=== PATIENT | female | born 1955 | race Caucasian/White ===

== ENCOUNTER 2017-04-27 14:01 | Emergency (ER) | payer OTHER ==
[~2017-04-27] VITALS: Ht 149.9 cm; Wt 73.7 kg
[~2017-04-27 14:01] MED LIST: ACET500C5 PO; ACYC800T57 PO; NO MEDS TAKEN
[2017-04-27 14:12] VITALS: Ht 149.9 cm; Wt 73.7 kg
[2017-04-27] MEDS ORDERED: IBUP400T22 PO (14:36)
[2017-04-27] MEDS ORDERED: VALA10004 PO (14:36)
[2017-04-27] MEDS ORDERED: GABA300C16 PO (14:37)
--- NOTE | 2017-04-27 15:35 | ERD ---
ER Documentation Chief Complaint Chief Complaint rash x 3 days; hx of shingles HPI This is a 8-year-old female with a history of shingles presenting to the emergency department complaining of shingles sensation to the left lower chest for the past day. Patient states that this has happened in the past and which she has waited too long and shingles has developed. Denies any fever. Denies taking any medications for this ROS All systems reviewed and are negative except as per history of present illness. Medications Home Meds Active Scripts Gabapentin* (Gabapentin*) 300 Mg Capsule, 300 MG PO BID, #20 CAP Prov:ABBI FRANK PA-C 04/27/17 Ibuprofen* (Motrin*) 400 Mg Tab, 400 MG PO Q6H Y for PAIN AND OR ELEVATED TEMP, #30 TAB Prov:ABBI FRANKC 04/27/17 Valacyclovir HCl (Valtrex) 1,000 Mg Tablet, 1000 MG PO TID for 7 Days, TAB Prov:ABBI FRANKC 04/27/17 Acetaminophen* (Tylophen*) 500 Mg Capsule, 2 CAP PO Q8H Y for PAIN AND OR ELEVATED TEMP, #20 CAP Prov:ANTON ESTRELLA PA-C 03/13/16 Acyclovir* (Zovirax*) 800 Mg Tablet, 800 MG PO 5 TIMES DAILY for 7 Days, TAB Prov:ANTON ESTRELLA PA-C 03/13/16 Reported Medications [No Meds Taken] No Conflict Check 09/01/10 Allergies Allergies: Coded Allergies: No Allergy Information (Verified Allergy, Mild, 09/01/10) PMhx/Soc Hx Cardiac Disorders: Yes (htn) Hx Miscellaneous Medical Probl: Yes (dm, shingles) Physical Exam Vitals Vital Signs Date Time Temp Pulse Resp B/P Pulse Ox O2 Delivery O2 Flow Rate FiO2 04/27/17 14:12 98.1 80 18 176/74 99 Physical Exam Const: Developed well-nourished Head: Atraumatic Eyes: Normal Conjunctiva ENT: Normal External Ears, Nose and Mouth. Neck: Full range of motion..~ No meningismus. Resp: Clear to auscultation bilaterally Cardio: Regular rate and rhythm, no murmurs Abd: Soft, non tender, non distended. Normal bowel sounds Skin: No petechiae or rashes Back: No midline or flank tenderness Ext: No cyanosis, or edema Neur: Awake and alert Psych: Normal Mood and Affect Procedures/MDM This is a 62-year-old female presenting to the emergency department complaining of a sensation that she is about to get shingles on the left lower chest for the past day. In the past patient has had this sensation and waited and developed the rash. On examination there was no evidence of shingles at this time however she was empirically treated with valacyclovir. I discussed the follow-up with primary care physician. Return precautions given. Stable to be discharged home Departure Diagnosis: Primary Impression: Shingles Condition: Stable Patient Instructions: Shingles (Herpes Zoster) Referrals: DOCTOR,NOT ON STAFF (PCP) Additional Instructions: Visite a garcia melissa mariano para un EXAMEN.Regrese a estas instalaciones si no se mejora cristofer esperbamos o cristofer le dijimos. Egan toda la medicina harriett y cristofer se le indic. ABBI FRANK PA-C Apr 27, 2017 15:35
== END 2017-04-27 15:02 | disposition home or self-care (01) ==
LOC: E/R 14:01
DX: B02.9 Zoster without complications (principal); E11.9 Type 2 diabetes mellitus without complications; I10 Essential (primary) hypertension
CPT/HCPCS: 99284